=== PATIENT | male | born 1980 | race Caucasian/White ===

== ENCOUNTER 2019-01-25 15:45 | Emergency (ER) | payer OTHER ==
[~2019-01-25] VITALS: Ht 177.8 cm; Wt 72.6 kg
== END 2019-01-25 16:28 | disposition home or self-care (01) ==
LOC: ED 15:45
PROC: 0YQFXZZ Repair Right Knee Region, External Approach (ICD-10-PCS; principal; 2019-01-25)
DX: S81.011A Laceration without foreign body, right knee, initial encounter (principal); F17.200 Nicotine dependence, unspecified, uncomplicated; W45.8XXA Other foreign body or object entering through skin, initial encounter
CPT/HCPCS: 12002; 90471; 90715; 99282-25

== ENCOUNTER 2019-02-08 18:03 | Emergency (ER) | payer OTHER ==
[~2019-02-08] VITALS: Ht 177.8 cm; Wt 72.6 kg
--- OUTSIDE RECORDS SUMMARY | 2019-02-08 18:06 | XMS ---
PreManage Notification: COREY CAMPOS Security Emergency Physician Events No recent Security Events currently on file CRITERIA MET - [facility] - 2 Visits in 30 Days CARE PROVIDERS There are no care providers on record at this time. [place] has no Care Guidelines for this patient. Piero VISIT COUNT (12 MO.) 2 [facility] [place] TOTAL 2 NOTE: Visits indicate total known visits. ED/C VISIT TRACKING (12 MO.) 02/08/2019 18:[address] [facility] [place] TYPE: Emergency COMPLAINT: - WOUND CHECK 01/25/2019 15:[address] [facility] [place] TYPE: Emergency COMPLAINT: - R LEG LACERATION DIAGNOSES: - Nicotine dependence, unspecified, uncomplicated - Other foreign body or object entering through skin, initial encounter - Laceration without foreign body, right knee, initial encounter INPATIENT VISIT TRACKING (12 MO.) No inpatient visits to display in this time frame [email or web address]
== END 2019-02-08 19:37 | disposition home or self-care (01) ==
LOC: ED 18:03
DX: Z48.02 Encounter for removal of sutures (principal)